=== PATIENT | female | born 1990 | race Caucasian/White ===

== ENCOUNTER 2018-03-16 01:00 | Emergency (ER) | payer MEDICAID ==
[~2018-03-16] VITALS: Ht 162.6 cm; Wt 57.8 kg
[2018-03-16 01:17] VITALS: Ht 162.6 cm; Wt 57.8 kg
[2018-03-16 01:37] VITALS: BP 129/100
== END 2018-03-16 02:22 | disposition home or self-care (01) ==
LOC: ED 01:00
DX: N39.0 Urinary tract infection, site not specified (principal)

== ENCOUNTER 2018-05-15 13:52 | Emergency (ER) | payer MEDICAID ==
[~2018-05-15] VITALS: Ht 162.6 cm; Wt 58.5 kg
[2018-05-15 13:58] VITALS: Ht 162.6 cm; Wt 58.5 kg
[2018-05-15 15:21] VITALS: BP 109/69
== END 2018-05-15 15:21 | disposition home or self-care (01) ==
LOC: ED 13:52
DX: N39.0 Urinary tract infection, site not specified (principal)